=== PATIENT | male | born 1995 | race Caucasian/White ===

== ENCOUNTER 2019-10-04 09:54 | Emergency (ER) | payer BC ==
[2019-10-04 10:15] VITALS: BP 134/77; PULSE 89; TEMP 98.1
[2019-10-04] MEDS ORDERED: PROPARACAINE 0.5% OPHTH DROPS 15 ML BTL LEFT EYE STA (10:16)
[2019-10-04] MEDS ORDERED: TOBRAMYCIN 0.3% OPHTH DROPS 5 ML BTL LEFT EYE STA (10:16)
--- NOTE | 2019-10-04 10:35 | ED ---
Eye Problem HPI - General Chief complaint: Eye Problems Stated complaint: FB in eye Time Seen by Provider: 10/04/19 10:16 Source: patient, RN notes reviewed Mode of arrival: ambulatory Limitations: no limitations - History of Present Illness Initial comments: 24-year-old male presents emergency Department chief complaint left eye foreign body. Patient is using an angle wood grinder states that a piece of metal flew into his eye. Patient states that he had his tetanus updated last time this happened approximately year ago. Denies any blurred vision. Patient states this happened prior arrival. Patient offers no other complaints. - Related Data Home Medications Medication Instructions Recorded Confirmed No Known Home Medications 10/15/15 10/15/15 Allergies Allergy/AdvReac Type Severity Reaction Status Date / Time No Known Allergies Allergy Verified 10/04/19 10:15 Review of Systems ROS Statement: Those systems with pertinent positive or pertinent negative responses have been documented in the HPI. ROS Other: All systems not noted in ROS Statement are negative. Past Medical History Past Medical History: No Reported History History of Any Multi-Drug Resistant Organisms: None Reported Additional Past Surgical History / Comment(s): oral, vasectomy Past Psychological History: No Psychological Hx Reported Smoking Status: Never smoker Past Alcohol Use History: None Reported Past Drug Use History: None Reported General Exam Limitations: no limitations General appearance: alert, in no apparent distress Head exam: Present: atraumatic, normocephalic, normal inspection Eye exam: Present: PERRL, EOMI, other (Fluorescein uptake with slit lamp relief with proparacaine, foreign body was removed using sterile Q-tip). Absent: normal appearance (Foreign body in the central corneal region), scleral icterus, conjunctival injection, periorbital swelling ENT exam: Present: normal exam, normal oropharynx, mucous membranes moist Neck exam: Present: normal inspection, full ROM. Absent: tenderness, meningismus, lymphadenopathy Respiratory exam: Present: normal lung sounds bilaterally. Absent: respiratory distress, wheezes, rales, rhonchi, stridor Cardiovascular Exam: Present: regular rate, normal rhythm, normal heart sounds. Absent: systolic murmur, diastolic murmur, rubs, gallop, clicks Course Vital Signs 10/04/19 10:14 Temperature 98.1 F Pulse Rate 89 Respiratory 18 Rate Blood Pressure 134/77 O2 Sat by Pulse 99 Oximetry Medical Decision Making - Medical Decision Making Foreign body was removed in the emergency room no complications. Patient does have a corneal abrasion. Patient was placed on Tobrex eyedrops, his tetanus is up-to-date. Patient will follow-up with ophthalmology return for any worsening symptoms. Disposition Clinical Impression: Corneal abrasion, right Disposition: HOME SELF-CARE Condition: Stable Instructions (If sedation given, give patient instructions): Eye Foreign Body (ED) Additional Instructions: Please return to the Emergency Department if symptoms worsen or any other concerns. Is patient prescribed a controlled substance at d/c from ED?: No Referrals: Ricardo Benavidez DO [Primary Care Provider] - 1-2 days Larry Brown MD [STAFF PHYSICIAN] - 1-2 days Time of Disposition: 10:35
[2019-10-04 10:51] VITALS: RESP 20
== END 2019-10-04 10:53 | disposition home or self-care (01) ==
LOC: EC 09:54
DX: T15.02XA Foreign body in cornea, left eye, initial encounter (principal); W20.8XXA Other cause of strike by thrown, projected or falling object, initial encounter; Y93.89 Activity, other specified
CPT/HCPCS: 65220; 99283

== ENCOUNTER 2021-04-24 20:27 | Emergency (ER) | payer BC ==
[2021-04-24 20:33] VITALS: RESP 18
[2021-04-24] MEDS ORDERED: DIPH,PERTUS(ACELL)TETVAC-LF 0.5 ML VIAL IM ONE (21:05)
[2021-04-24] MEDS ORDERED: HYDROmorphone 1 MG/ML 1 ML SYRINGE IM STA (21:05)
--- NOTE | 2021-04-24 21:09 | ED ---
General Adult HPI - General Chief complaint: Eye Problems Stated complaint: L eye injury Time Seen by Provider: 04/24/21 20:50 Source: patient, family, RN notes reviewed Mode of arrival: ambulatory Limitations: no limitations - History of Present Illness Initial comments: Patient is a pleasant 26-year-old male presenting to the emergency department with concern for injury of the left eye. Patient states he was driving a fence post the ground when he slipped and went forward. Patient struck just above his left eye. Patient states he is unable to open his eyelid. No other area of injury or concern. Discomfort is moderate. Unclear last tetanus immunization. - Related Data Home Medications Medication Instructions Recorded Confirmed No Known Home Medications 10/15/15 04/24/21 Allergies Allergy/AdvReac Type Severity Reaction Status Date / Time No Known Allergies Allergy Verified 04/24/21 21:26 Review of Systems ROS Statement: Those systems with pertinent positive or pertinent negative responses have been documented in the HPI. ROS Other: All systems not noted in ROS Statement are negative. Constitutional: Denies: fever Eyes: Reports: as per HPI. Denies: vision change ENT: Denies: ear pain Respiratory: Denies: cough Cardiovascular: Denies: chest pain Endocrine: Denies: fatigue Gastrointestinal: Denies: abdominal pain Genitourinary: Denies: dysuria Musculoskeletal: Denies: back pain Skin: Denies: rash Neurological: Denies: headache Psychiatric: Denies: anxiety Past Medical History Past Medical History: No Reported History History of Any Multi-Drug Resistant Organisms: None Reported Past Surgical History: No Surgical Hx Reported Additional Past Surgical History / Comment(s): oral, vasectomy Past Psychological History: No Psychological Hx Reported Smoking Status: Never smoker Past Alcohol Use History: Rare Past Drug Use History: None Reported General Exam Limitations: no limitations General appearance: alert Head exam: Present: normocephalic Eye exam: Present: PERRL, other (Left upper eyelid laceration. Upon passive opening of the eyelid patient states vision is normal. No trauma apparent to the eyeball.). Absent: EOMI (Unable to gaze downward), conjunctival injection, periorbital swelling Expanded Eyelids: Laceration: Left Pupils: Regular, Round: Bilateral, Reactive: Bilateral Sclera/Conjunctival: Normal Inspection: Bilateral ENT exam: Present: normal exam Neck exam: Present: normal inspection Respiratory exam: Present: normal lung sounds bilaterally Cardiovascular Exam: Present: regular rate, normal rhythm GI/Abdominal exam: Present: soft. Absent: tenderness Extremities exam: Present: normal inspection Neurological exam: Present: alert Psychiatric exam: Present: normal affect, normal mood Skin exam: Present: normal color, other (Laceration left upper eyelid) Course Vital Signs 04/24/21 04/24/21 20:29 22:02 Temperature 98.0 F 98.2 F Pulse Rate 84 71 Respiratory 18 18 Rate Blood Pressure 148/84 137/87 O2 Sat by Pulse 98 95 Oximetry - Reevaluation(s) Reevaluation #1: 04/24/21 22:15 Case discussed with radiologist regarding CT results. Films reviewed. Patient updated. 04/24/21 22:21 [facility] does not have ophthalmology available. [facility] refuses transfer secondary to no beds available. 04/24/21 22:30 Case discussed with her local [place], Tomas who will get a hold of ophthalmologists followed by emergency physician and call back. 04/24/21 22:43 Case again discussed with [facility] as well as Dr. You at [facility] will accept transfer. Medical Decision Making - Radiology Data Radiology results: image reviewed (Computed tomography scan of the orbit shows full of fracture or and roof left orbit. Bone fragments extending to the inferior left frontal lobe brain parenchyma with adjacent minimal hemorrhage.) Critical Care Time Critical Care Time: Yes Total Critical Care Time: 32 Disposition Clinical Impression: Orbital floor fracture, Orbital roof fracture with intracranial injury Disposition: OTHER INSTITUTION NOT DEFINED Condition: Serious Is patient prescribed a controlled substance at d/c from ED?: No Referrals: Ricardo Benavidez DO [Primary Care Provider] - 1-2 days Time of Disposition: 22:44 - Out of Hospital Transfer - Req. Specs Out of Hospital Transfer - Requested Specifics: Other Emergency Center
[2021-04-24] MEDS ORDERED: LIDOCAINE 2% GEL 30 ML TUBE TOPICAL ONE (21:15)
--- NOTE | 2021-04-24 22:09 | CT ---
EXAMINATION TYPE: CT orbits wo con DATE OF EXAM: 04/24/2021 COMPARISON: None HISTORY: LT eye injury, fell on post CT DLP: 347.2 mGycm Automated exposure control for dose reduction was used. Images obtained from the bottom of the maxilla to the top of the frontal sinuses with no contrast. There is mild soft tissue swelling over the left frontal bone. There is preseptal soft tissue swellin g around the left orbit. The globes are symmetric. There is no sign of retro-orbital mass. There is depression of the floor of the left bony orbit with inferior displacement of the inferior re ctus muscle. There is herniation of the muscle and fat into the left maxillary sinus. There is depres emily of the floor 8 mm. There is also a blowout fracture of the roof of the left bony orbit into the anterior cranial fossa. There is elevation of the fragment 9 mm. There is very minimal stranding in the left frontal lobes co nsistent with brain parenchyma hemorrhage at the site of the fracture. This is on the inferior left f rontal lobe. There is no intraorbital air. The zygomatic arches are intact. Nasal bone appears intact. IMPRESSION: Blowout fracture of the roof and floor of the left orbit as above. Bone fragments extending into the inferior left frontal lobe brain parenchyma with adjacent minimal hemorrhage. This exam was discussed with ER physician at 10:00 PM.
[2021-04-24] MEDS ORDERED: HYDROmorphone 1 MG/ML 1 ML SYRINGE IVP STA (22:15)
[2021-04-24 22:46] LABS: Basophils # (A) 0.1 k/uL (0-0.2); Basophils % (A) 1 %; Eosinophils # (A) 0.1 k/uL (0-0.7); Eosinophils % (A) 1 %; HGB 16.1 gm/dL (13.0-17.5); Lymphocytes # (A) 1.4 k/uL (1.0-4.8); Lymphocytes % (A) 11 %; MCH 29.1 pg (25.0-35.0); MCHC 35.7 g/dL (31.0-37.0); MCV 81.7 fL (80.0-100.0); Mean Platelet Volume 8.3; Monocytes # (A) 0.7 k/uL (0-1.0); Monocytes % (A) 6 %; Neutrophils # (A) 9.8 k/uL (1.3-7.7); Neutrophils % (A) 81 %; Platelet Count 219 k/uL (150-450); RBC 5.51 m/uL (4.30-5.90); RDW 12.3 % (11.5-15.5); WBC 12.2 k/uL (3.8-10.6)
[2021-04-24 23:03] LABS: Partial Thromboplastin Time 23.2 sec (22.0-30.0); Prothrombin Time 10.4 sec (9.0-12.0)
[2021-04-24 23:05] LABS: Albumin 4.6 g/dL (3.5-5.0); Calcium 8.9 mg/dL (8.4-10.2); Potassium 3.9 mmol/L (3.5-5.1); Total Bilirubin 0.2 mg/dL (0.2-1.3); Total Protein 7.4 g/dL (6.3-8.2)
[2021-04-24 23:23] VITALS: BP 137/89; PULSE 73; TEMP 98
== END 2021-04-24 23:10 | disposition other institution (70) ==
LOC: EC 20:27
DX: S02.32XA Fracture of orbital floor, left side, initial encounter for closed fracture (principal); S02.122A Fracture of orbital roof, left side, initial encounter for closed fracture; S06.890A Other specified intracranial injury without loss of consciousness, initial encounter; W22.8XXA Striking against or struck by other objects, initial encounter
CPT/HCPCS: 36415; 80053; 85025; 85610; 85730; 70480; 90715; 99285; 96365; 96375; 96372; 90471; J0690; J1170

== ENCOUNTER 2022-07-19 16:32 | Emergency (ER) | payer BC ==
[2022-07-19 16:42] VITALS: RESP 16
--- NOTE | 2022-07-19 16:57 | ED ---
General Adult HPI - General Chief complaint: Abdominal Pain Stated complaint: Rib/abd pain Time Seen by Provider: 07/19/22 16:48 Source: patient Mode of arrival: ambulatory Limitations: no limitations - History of Present Illness Initial comments: Patient is a 27-year-old male presents to the emergency room with complaints of right-sided rib pain that hurts more with deep inspiration. He reports that the symptoms began approximately 4 days ago initial symptoms included a low-grade fever of 100.8 and banding across the entire bottom of his rib cage along with a dry nagging cough and throat clearing. He denies any fevers higher than 100.8 or chills. He has not had any left-sided rib cage pain since his initial event. He is not coated vaccinated. He denies any known exposure to COVID or influenza, he denies any abdominal pain, nausea, vomiting, typical chest pain, shortness breath, flank pain, hematuria or dysuria. He denies any significant past medical history is not taking any medications on a regular basis. - Related Data Home Medications Medication Instructions Recorded Confirmed No Known Home Medications 10/15/15 07/19/22 Allergies Allergy/AdvReac Type Severity Reaction Status Date / Time No Known Allergies Allergy Verified 07/19/22 16:42 Review of Systems ROS Statement: Those systems with pertinent positive or pertinent negative responses have been documented in the HPI. ROS Other: All systems not noted in ROS Statement are negative. Past Medical History Past Medical History: No Reported History History of Any Multi-Drug Resistant Organisms: None Reported Past Surgical History: No Surgical Hx Reported Additional Past Surgical History / Comment(s): oral, vasectomy, eye surgery Past Psychological History: No Psychological Hx Reported Smoking Status: Never smoker Past Alcohol Use History: Rare Past Drug Use History: None Reported General Exam Limitations: no limitations General appearance: alert, in no apparent distress Head exam: Present: atraumatic, normocephalic, normal inspection Eye exam: Present: normal appearance, PERRL, EOMI. Absent: scleral icterus, conjunctival injection, periorbital swelling ENT exam: Present: normal exam, mucous membranes moist Neck exam: Present: normal inspection. Absent: tenderness, meningismus, lymphadenopathy Respiratory exam: Present: normal lung sounds bilaterally. Absent: respiratory distress, wheezes, rales, rhonchi, stridor Cardiovascular Exam: Present: regular rate, normal rhythm, normal heart sounds. Absent: systolic murmur, diastolic murmur, rubs, gallop, clicks GI/Abdominal exam: Present: soft, normal bowel sounds. Absent: distended, tenderness, guarding, rebound, rigid Extremities exam: Present: normal inspection, full ROM, normal capillary refill. Absent: tenderness, pedal edema, joint swelling, calf tenderness Back exam: Present: normal inspection. Absent: CVA tenderness (R), CVA tenderness (L) Neurological exam: Present: alert, oriented X3, CN II-XII intact Psychiatric exam: Present: normal affect, normal mood Skin exam: Present: warm, dry, intact, normal color. Absent: rash Course Vital Signs 07/19/22 16:39 Temperature 97.6 F Pulse Rate 69 Respiratory 16 Rate Blood Pressure 140/86 O2 Sat by Pulse 99 Oximetry Medical Decision Making - Medical Decision Making 27-year-old male presents to the emergency room department with complaints of right lower rib pain worse with inspiration consistent with likely costochondritis. Low-grade temperatures approximately 4 days prior to onset of his presentation today. Denies known exposure to COVID or influenza. Will check chest x-ray, CBC, BMP along with COVID and influenza swab. CBC without abnormalities. CMP shows slightly elevated creatinine normal BUN 8 and EGFR. Covid and influenza swabs negative. Chest x-ray without any acute car diopulmonary process. Findings discussed with patient and spouse. Encouraged good hydration for sli ghtly elevated creatinine and follow-up with his primary care provider. Advised use of anti-inflammatories as needed for muscle pain. Case discussed with Dr. Stroud. - Lab Data Result diagrams: 07/19/22 17:06 07/19/22 17:06 Lab Results 07/19/22 07/19/22 07/19/22 Range/Units 17:06 17:06 17:06 WBC 6.8 (3.8-10.6) k/uL RBC 5.44 (4.30-5.90) m/uL Hgb 15.9 (13.0-17.5) gm/dL Hct 45.7 (39.0-53.0) % MCV 84.0 (80.0-100.0) fL MCH 29.3 (25.0-35.0) pg MCHC 34.9 (31.0-37.0) g/dL RDW 12.6 (11.5-15.5) % Plt Count 239 (150-450) k/uL MPV 8.5 Neutrophils % 69 % Lymphocytes % 17 % Monocytes % 8 % Eosinophils % 2 % Basophils % 1 % Neutrophils # 4.7 (1.3-7.7) k/uL Lymphocytes # 1.2 (1.0-4.8) k/uL Monocytes # 0.6 (0-1.0) k/uL Eosinophils # 0.1 (0-0.7) k/uL Basophils # 0.1 (0-0.2) k/uL Sodium 142 (137-145) mmol/L Potassium 4.2 (3.5-5.1) mmol/L Chloride 103 (98-107) mmol/L Carbon Dioxide 25 (22-30) mmol/L Anion Gap 14 mmol/L BUN 16 (9-20) mg/dL Creatinine 1.28 H (0.66-1.25) mg/dL Est GFR (CKD-EPI)AfAm 88 (>60 ml/min/1.73 sqM) Est GFR (CKD-EPI)NonAf 76 (>60 ml/min/1.73 sqM) Glucose 96 (74-99) mg/dL Calcium 9.2 (8.4-10.2) mg/dL Total Bilirubin 0.6 (0.2-1.3) mg/dL AST 28 (17-59) U/L ALT 30 (4-49) U/L Alkaline Phosphatase 107 (38-126) U/L Total Protein 7.7 (6.3-8.2) g/dL Albumin 4.7 (3.5-5.0) g/dL Coronavirus (PCR) (Not Detectd) Influenza Type A RNA Not Detected (Not Detectd) Influenza Type B (PCR) Not Detected (Not Detectd) 07/19/22 Range/Units 17:06 WBC (3.8-10.6) k/uL RBC (4.30-5.90) m/uL Hgb (13.0-17.5) gm/dL Hct (39.0-53.0) % MCV (80.0-100.0) fL MCH (25.0-35.0) pg MCHC (31.0-37.0) g/dL RDW (11.5-15.5) % Plt Count (150-450) k/uL MPV Neutrophils % % Lymphocytes % % Monocytes % % Eosinophils % % Basophils % % Neutrophils # (1.3-7.7) k/uL Lymphocytes # (1.0-4.8) k/uL Monocytes # (0-1.0) k/uL Eosinophils # (0-0.7) k/uL Basophils # (0-0.2) k/uL Sodium (137-145) mmol/L Potassium (3.5-5.1) mmol/L Chloride (98-107) mmol/L Carbon Dioxide (22-30) mmol/L Anion Gap mmol/L BUN (9-20) mg/dL Creatinine (0.66-1.25) mg/dL Est GFR (CKD-EPI)AfAm (>60 ml/min/1.73 sqM) Est GFR (CKD-EPI)NonAf (>60 ml/min/1.73 sqM) Glucose (74-99) mg/dL Calcium (8.4-10.2) mg/dL Total Bilirubin (0.2-1.3) mg/dL AST (17-59) U/L ALT (4-49) U/L Alkaline Phosphatase (38-126) U/L Total Protein (6.3-8.2) g/dL Albumin (3.5-5.0) g/dL Coronavirus (PCR) Not Detected (Not Detectd) Influenza Type A RNA (Not Detectd) Influenza Type B (PCR) (Not Detectd) Disposition Clinical Impression: Costochondritis Disposition: HOME SELF-CARE Condition: Stable Instructions (If sedation given, give patient instructions): Costochondritis (ED) Additional Instructions: Please drink plenty of fluids. Utilize ibuprofen [id number] as needed for muscle pain. Follow-up with your primary care provider. Please return to the Em ergency Department if symptoms worsen or any other concerns. Is patient prescribed a controlled substance at d/c from ED?: No Referrals: Ricardo Benavidez DO [Primary Care Provider] - 1-2 days Time of Disposition: 18:18
[2022-07-19 17:17] LABS: Basophils # (A) 0.1 k/uL (0-0.2); Basophils % (A) 1 %; Eosinophils # (A) 0.1 k/uL (0-0.7); Eosinophils % (A) 2 %; HCT 45.7 % (39.0-53.0); HGB 15.9 gm/dL (13.0-17.5); Lymphocytes # (A) 1.2 k/uL (1.0-4.8); Lymphocytes % (A) 17 %; MCH 29.3 pg (25.0-35.0); MCHC 34.9 g/dL (31.0-37.0); Mean Platelet Volume 8.5; Monocytes # (A) 0.6 k/uL (0-1.0); Monocytes % (A) 8 %; Neutrophils # (A) 4.7 k/uL (1.3-7.7); Neutrophils % (A) 69 %; Platelet Count 239 k/uL (150-450); RBC 5.44 m/uL (4.30-5.90); RDW 12.6 % (11.5-15.5); WBC 6.8 k/uL (3.8-10.6)
--- NOTE | 2022-07-19 17:19 | XR ---
EXAMINATION: XR chest 2V DATE AND TIME: 07/19/2022 5:13 PM CLINICAL INDICATION: PHH; Right flank/chest wall pain TECHNIQUE: Departmental protocol COMPARISON: None FINDINGS: The lungs are clear. The pleural spaces are negative. The cardiac silhouette is not enlarged. The remainder of the mediastinal silhouette is unremarkable. The skeletal structures and soft tissues are negative for acute findings. IMPRESSION: NO ACUTE PROCESS.
[2022-07-19 17:31] LABS: Albumin 4.7 g/dL (3.5-5.0); Calcium 9.2 mg/dL (8.4-10.2); Potassium 4.2 mmol/L (3.5-5.1); Total Bilirubin 0.6 mg/dL (0.2-1.3); Total Protein 7.7 g/dL (6.3-8.2)
[2022-07-19 18:19] VITALS: BP 138/93; PULSE 74; TEMP 98.4
== END 2022-07-19 18:42 | disposition home or self-care (01) ==
LOC: EC 16:32
DX: M94.0 Chondrocostal junction syndrome [Tietze] (principal); Z20.822 Contact with and (suspected) exposure to COVID-19
CPT/HCPCS: 36415; 71046; 80053; 85025; 87502; 87635; 99284